=== PATIENT | male | born 1985 | race Caucasian/White ===

== ENCOUNTER 2021-09-29 20:56 | Emergency (ER) | payer SELFPAY ==
[~2021-09-29] VITALS: Ht 167.6 cm; Wt 83.0 kg
[2021-09-30] MEDS ORDERED: HYDROCODONE/ACETAMINOPHEN 5/325MG TABLET PO ONE (01:30)
[2021-09-30] MEDS ORDERED: IBUP-2029 MT (01:30)
[2021-09-30] MEDS ORDERED: IBUPROFEN 600MG TABLET PO ONE (01:30)
[2021-09-30 01:35] VITALS: BP 135/72
== END 2021-09-30 01:50 | disposition home or self-care (01) ==
LOC: ER 20:56
DX: S02.2XXA Fracture of nasal bones, initial encounter for closed fracture (principal); R04.0 Epistaxis; S09.8XXA Other specified injuries of head, initial encounter; V49.49XA Driver injured in collision with other motor vehicles in traffic accident, initial encounter; Y93.89 Activity, other specified; Y92.488 Other paved roadways as the place of occurrence of the external cause
CPT/HCPCS: 70486; 99284